=== PATIENT | male | born 1965 | race Caucasian/White ===

== ENCOUNTER → 2017-12-08 | Outpatient (CLI) | payer OTHER ==
[~2017-12-08] MED LIST: LIPITOR40 MG PO; LO-DOSE ASPIRIN81 M1 PO; NEURONTIN100 MG PO; NEXIUM40 MG PO; TRAMADOL HCL50 MG PO; ZYRTEC10 M3 PO
== END | disposition home or self-care (01) ==
LOC: CDC 15:13
DX: Z01.810 Encounter for preprocedural cardiovascular examination (principal); Z12.11 Encounter for screening for malignant neoplasm of colon; Z00.00 Encounter for general adult medical examination without abnormal findings; K62.5 Hemorrhage of anus and rectum; E78.5 Hyperlipidemia, unspecified; R20.0 Anesthesia of skin; R20.2 Paresthesia of skin; R94.31 Abnormal electrocardiogram [ECG] [EKG]
CPT/HCPCS: 93000

== ENCOUNTER → 2017-12-12 | Outpatient (CLI) | payer OTHER ==
[~2017-12-12] VITALS: Ht 180.3 cm; Wt 93.0 kg
== END | disposition home or self-care (01) ==
LOC: AMB 10:30
PROC: 0DJD8ZZ Inspection of Lower Intestinal Tract, Via Natural or Artificial Opening Endoscopic (ICD-10-PCS; principal; 2017-12-12)
DX: Z12.11 Encounter for screening for malignant neoplasm of colon (principal); K57.30 Diverticulosis of large intestine without perforation or abscess without bleeding; K64.8 Other hemorrhoids; K62.5 Hemorrhage of anus and rectum; Z79.82 Long term (current) use of aspirin
CPT/HCPCS: J0330

== ENCOUNTER 2018-01-26 10:23 | Day surgery (SDC) | payer OTHER ==
[~2018-01-26] VITALS: Ht 180.3 cm; Wt 93.0 kg
[~2018-01-26 10:23] MED LIST changes: +CLARITIN,ALAVAR10 MG PO; +LO-DOSE ASPIRIN81 M2 PO
[2018-01-26 10:59] VITALS: BP 130/82
[2018-01-26] MEDS ORDERED: DILAUDID2 MG PO (13:01)
[2018-01-26 14:15] VITALS: BP 113/70
[2018-01-26 15:10] VITALS: BP 111/60
[2018-01-26 16:25] VITALS: BP 117/65
== END 2018-01-26 16:30 | disposition home or self-care (01) ==
LOC: SDC 10:23
DX: K64.2 Third degree hemorrhoids (principal); K64.4 Residual hemorrhoidal skin tags; Z79.82 Long term (current) use of aspirin; E78.5 Hyperlipidemia, unspecified
CPT/HCPCS: 88304; J1100; J1885; J2250; J2405; J3010; Q0175; S0074